=== PATIENT | female | born 1995 | race African-American/Black ===

== ENCOUNTER 2017-02-28 21:39 | Emergency (ER) | payer BC, OTHER ==
[2017-02-28 22:09] VITALS: BP 131/71; PULSE 59; TEMP 98; BMI 26.3
[2017-02-28] MEDS ORDERED: SODIUM CHLORIDE 1,000 ML IV STA (22:35)
[2017-02-28] MEDS ORDERED: ONDANSETRON 4 MG/2 ML VIAL IVPB ONE (22:35)
--- NOTE | 2017-02-28 23:01 | PDOC ---
History of Present Illness - General Chief Complaint: Syncope/Near Syncope Stated Complaint: SYNCOPE/NEAR SYNCOPE Time Seen by Provider: 02/28/17 22:17 History Source: Patient, Family Exam Limitations: No Limitations - History of Present Illness Initial Comments: 02/28/17 22:56 21yo Female patient w/ PmHx: H. Pylori presents to ED c/o Syncope. Patient reports she has been vomiting for the past 2 days and not feeling well. Patient states she then went out for a walk, and suddenly became dizzy. She sat down on a stoop for a while, and as she stood up, she passed out face first on concrete. Patient states that prior to symptoms today, she had been experiencing Lt Flank pain with n/v, but did not think anything of it because she usually experience these types of vomiting episodes. Associated: Subjective fever. LNMP: January 26. Presenting Symptoms: Back Pain (Lt Flank), Nausea, Syncope, Vomiting Timing/Duration: reports: constant. denies: getting worse, changing over time, intermittent, resolved prior to arrival, gone now, other Severity/Quality: reports: mild Location: denies: substernal, central, epigastric, shoulder, back, abdomen, other Chest Pain Radiation: denies: no radiation, jaw, arms, neck, shoulders, back, sternal notch, epigastric, other Activities at Onset: denies: none, exertion, emotional upset, rest, sleep, no specific activity, eating, working, sexual intercourse, other Prior Chest Pain/Cardiac Workup: denies: No prior chest pain, No prior cardiac workup, Non-cardiac, Angina, Cardiac Cath, Cardiolye Scan, Echocardiography, Heart Attack, Pulmonary Embolism, Stress Test, Thallium Scan, Other Modifying Factors: worse with: antacids, breathing, coughing, defecating, eating , exercise, lying down, morphine, movement, nitroglycerin, oxygen, palpation, rest, other Aspirin Received prior to arrival (Core Measure): No: no aspirin today, unknown , 81 mg x 1, 81 mg x 2, 81 mg x 3, 81 mg x 4, 325 mg x 1, provided at home, provided by EMS, provided by ED Past History - Travel Traveled outside of the country in the last 30 days: No Close contact w/someone who was outside of country & ill: No - Past Medical History Allergies/Adverse Reactions: Allergies Allergy/AdvReac Type Severity Reaction Status Date / Time No Known Allergies Allergy Verified 03/01/17 00:56 Home Medications: Ambulatory Orders NK [No Known Home Medication] 03/01/17 Asthma: Yes - Immunization History Immunization Up to Date: Yes - Psycho/Social/Smoking Cessation Hx Anxiety: No Suicidal Ideation: No Smoking History: Never smoked Have you smoked in the past 12 months: No Information on smoking cessation initiated: No Hx Alcohol Use: No Drug/Substance Use Hx: No Substance Use Type: Marijuana Cardiac Specific PMH - Complaint Specific PMHX Abdominal Aortic Aneurysm: No Angina: No Cardiac Arrhythmia: No Cardiac Stent: No GERD: No Myocardial Infarction: No Pacemaker: No Pulmonary Embolus: No Valvular Heart Disease: No Peripheral Vascular Disease: No Review of Systems - Review of Systems Able to Perform ROS?: Yes Is the patient limited Macedonian proficient: No Constitutional: Yes: Fever (Subjective). No: Chills Respiratory: No: Cough, Shortness of Breath, Wheezing Cardiac (ROS): Yes: Lightheadedness, Syncope. No: Chest Pain, Palpitations, Chest Tightness ABD/GI: Yes: Nausea, Poor Fluid Intake, Vomiting. No: Constipated, Diarrhea, Difficulty Swallowing, Poor Appetite, Rectal Bleeding, Abdominal cramping : Yes: Flank Pain (Lt). No: Burning, Dysuria, Frequency, Hematuria, Urgency Musculoskeletal: No: Back Pain Integumentary: No: Erythema, Rash, Sweating Neurological: Yes: Dizziness. No: Headache, Seizure, Tremors, Weakness All Other Systems: Reviewed and Negative *Physical Exam - Vital Signs Last Vital Signs Temp Pulse Resp BP Pulse Ox 98 F 59 L 19 131/71 100 02/28/17 22:07 02/28/17 22:07 02/28/17 22:07 02/28/17 22:07 02/28/17 22:36 - Physical Exam General Appearance: Yes: Nourished, Appropriately Dressed. No: Apparent Distress, Mild Distress, Moderate Distress, Severe Distress HEENT: positive: EOMI, ABI, Normal ENT Inspection, Normal Voice, Symmetrical, TMs Normal, Pharynx Normal. negative: Pharyngeal Erythema, Tonsillar Exudate, Tonsillar Erythema, Nasal Congestion, Rhinorrhea, TM Bulging, TM Dull, TM Erythema Neck: positive: Trachea midline, Normal Thyroid, Supple. negative: Rigid, Decreased range of motion, Lymphadenopathy (R), Lymphadenopathy (L), Tender lateral, Tender midline Respiratory/Chest: positive: Lungs Clear, Normal Breath Sounds. negative: Chest Tender, Respiratory Distress, Accessory Muscle Use, Labored Respiration, Rapid RR, Decreased Breath Sounds, Rhonchi, Stridor Cardiovascular: positive: Regular Rhythm, Regular Rate Gastrointestinal/Abdominal: positive: Normal Bowel Sounds, Soft. negative: Distended, Guarding, Rebound, Tenderness Musculoskeletal: positive: Normal Inspection, Other. negative: CVA Tenderness, CVA Tenderness (L), Vertebral Tenderness Extremity: positive: Normal Capillary Refill, Normal Inspection, Normal Range of Motion, Pelvis Stable, Other. negative: Pedal Edema, Swelling, Calf Tenderness, Erythema, Inflammation Integumentary: positive: Normal Color, Dry, Warm, Other (Abrasion to Lt knee). negative: Moist, Rash, Swelling, Bruising Neurologic: positive: film producer II-XII NML intact, Fully Oriented, Alert, Normal Mood/ Affect, Normal Response, Motor Strength 5/5 Heart Score/ECG Review - ECG Impressions Normal ECG: Yes Non-specific ST Elevation: No Ischemic Changes: No Bradycardia: Yes Torsades kanwal Pointes: No WPW: No ED Treatment Course - LABORATORY CBC & Chemistry Diagram: 02/28/17 23:40 02/28/17 23:40 - ADDITIONAL ORDERS Additional order review: Laboratory Results 02/28/17 02/28/17 23:40 23:40 Sodium 138 Potassium 3.8 Chloride 102 Carbon Dioxide 24 Anion Gap 12 BUN 8 D Creatinine 0.7 Creat Clearance w eGFR > 60 Random Glucose 92 Lactic Acid 1.2 Calcium 9.0 Total Bilirubin 0.2 AST 18 D ALT 30 D Alkaline Phosphatase 51 Creatine Kinase 178 CK-MB (CK-2) < 1.000 Total Protein 7.0 Albumin 3.7 Total Amylase 65 Lipase 102 Beta HCG, Quant < 1.0 02/28/17 23:40 RBC 4.59 MCV 78.2 L MCHC 32.9 RDW 13.7 MPV 9.0 Neutrophils % 77.6 D Lymphocytes % 14.2 D Monocytes % 7.8 Eosinophils % 0.2 D Basophils % 0.2 - RADIOLOGY Radiology Studies Ordered: Category Date Time Status ABDOMEN & PELVIS CT W/O CONTR [CT] Stat CT Scan 03/01/17 00:[address] W/O CONTR [CT] Stat CT Scan 03/01/17 00:[address] WITHOUT CONTRAST [CT] Stat CT Scan 03/01/17 00:00 Taken - Medications Given in the ED: ED Medications Discontinued Medications Generic Name Dose Route Start Last Admin Trade Name Ingrid PRN Reason Stop Dose Admin Sodium Chloride 1,000 mls @ 1,000 mls/hr 02/28/17 22:35 02/27/17 23:30 Normal Saline - IV 02/28/17 23:34 1,000 mls/hr ASDIR STA Administration Ondansetron HCl 8 mg 02/28/17 22:35 02/28/17 23:30 Zofran Injection IVPB 02/28/17 22:36 8 mg ONCE ONE Administration *DC/Admit/Observation/Transfer Diagnosis at time of Disposition: Syncope and collapse - Discharge Dispostion Disposition: HOME Condition at time of disposition: Improved Admit: No - Patient Instructions Printed Discharge Instructions: DI for Syncope in Adults (Fainting) Additional Instructions: FOLLOW UP WITH YOUR DOCTOR NEEDED. MOTRIN OR TYLENOL FOR PAIN NEEDED. GET LOTS OF REST. DRINK PLENTY FLUID. RETURN IF SYMPTOMS WORSEN OR ANY CONCERNS FOR FURTHER EVALUATION. Print Language: K[place] - Post Discharge Activity Work/School Note: Back to Work
[2017-02-28] MEDS ORDERED: ONDANSETRON 4 MG/2 ML VIAL ONE (23:14)
[2017-02-28 23:51] LABS: BASOPHIL 0.2 % (0-2.0); EOSINOPHIL 0.2 % (0-4.5); MCH 25.7 pg (25.7-33.7); MCHC 32.9 g/dl (32.0-36.0); MEAN CELL VOLUME 78.2 fl (80-96); NEUTROPHILS 77.6 % (42.8-82.8); PLATELET COUNT 200 K/MM3 (134-434); RDW 13.7 % (11.6-15.6); WHITE BLOOD COUNT 7.7 K/mm3 (4.0-10.0)
[2017-03-01 00:15] LABS: ALBUMIN 3.7 g/dl (3.4-5.0); AMYLASE 65 U/L (25-115); ANION GAP 12 (8-16); BILIRUBIN,TOTAL 0.2 mg/dL (0.2-1.0); CO2 24 mmol/L (21-32); CREATININE 0.7 mg/dL (0.55-1.02); GLUCOSE,RANDOM 92 mg/dL (74-106); SGOT/AST 18 U/L (15-37); SGPT/ALT 30 U/L (12-78)
[2017-03-01 00:18] LABS: ALK PHOS 51 U/L (45-117)
[2017-03-01 01:03] LABS: URINE APPEARANCE CLEAR; URINE BILIRUBIN NEGATIVE (NEGATIVE); URINE BLOOD NEGATIVE (NEGATIVE); URINE COLOR LTYELLOW; URINE GLUCOSE (UA) NEGATIVE (NEGATIVE); URINE KETONE TRACE (NEGATIVE); URINE LEUK ESTERASE NEGATIVE (NEGATIVE); URINE NITRITE NEGATIVE (NEGATIVE); URINE PROTEIN NEGATIVE (NEGATIVE); URINE UROBILINOGEN NEGATIVE E.U./dl (0.2-1.0)
[2017-03-01] MEDS ORDERED: ONDANSETRON 4 MG/2 ML VIAL IVPUSH ONE (03:24)
[2017-03-01] MEDS ORDERED: ACETAMINOPHEN 500 MG TABLET (FP) PO ONE (03:24)
[2017-03-01] MEDS ORDERED: ACETAMINOPHEN 325 MG TABLET (FP) ONE (03:43)
[2017-03-01] MEDS ORDERED: ONDANSETRON 4 MG/2 ML VIAL ONE (03:44)
--- NOTE | 2017-03-02 12:38 | EKG ---
Test Reason : Blood Pressure : / mmHG Vent. Rate : 058 BPM Atrial Rate : 058 BPM P-R Int : 156 ms QRS Dur : 084 ms QT Int : 416 ms P-R-T Axes : 064 069 040 degrees QTc Int : 408 ms SINUS BRADYCARDIA WITH SINUS ARRHYTHMIA OTHERWISE NORMAL ECG NO PREVIOUS ECGS AVAILABLE Confirmed by EDY RUSSELL, MEENA ([id number]) on 03/02/2017 12:37:57 PM Referred By: Confirmed By:MEENA SNOW MD
== END 2017-03-01 03:52 | disposition home or self-care (01) ==
LOC: JER 21:39
PROC: 3E033GC Introduction of Other Therapeutic Substance into Peripheral Vein, Percutaneous Approach (ICD-10-PCS; principal; 2017-02-28)
PROC: 3E0337Z Introduction of Electrolytic and Water Balance Substance into Peripheral Vein, Percutaneous Approach (ICD-10-PCS; 2017-02-28)
DX: R55 Syncope and collapse (principal)
CPT/HCPCS: 36415; 70450-TC; 72125-TC; 74176-TC; 80053; 81003; 82150; 82550; 82553; 83605; 83690; 84702; 85025; 87077; 87086; 93005; 93010; 99283-25

== ENCOUNTER 2020-12-16 13:42 | Emergency (ER) | payer BC, OTHER ==
[2020-12-16 13:50] VITALS: BP 123/72; PULSE 81; TEMP 97.9; BMI 28.4
[2020-12-16] MEDS ORDERED: IBUPROFEN 600 MG TABLET (FP) PO ONE ×2 (14:13→15:08)
== END 2020-12-16 17:02 | disposition home or self-care (01) ==
LOC: JERFT 13:42
DX: M79.642 Pain in left hand (principal); M79.632 Pain in left forearm; M25.562 Pain in left knee
CPT/HCPCS: 73070-TC-LT-FY; 73090-TC-LT-FY; 73130-TC-LT-FY; 73562-TC-LT-FY; 84703; 99285-25

== ENCOUNTER 2022-03-19 19:22 | Emergency (ER) | payer BC, OTHER ==
[2022-03-19 19:38] VITALS: BP 128/83; PULSE 87; TEMP 98.5; BMI 28.2
[2022-03-19] MEDS ORDERED: KETOROLAC TROMETHAMINE 30 MG/1 ML VIAL IM ONE (21:16)
== END 2022-03-19 21:54 | disposition home or self-care (01) ==
LOC: JERFT 19:22
PROC: 3E0233Z Introduction of Anti-inflammatory into Muscle, Percutaneous Approach (ICD-10-PCS; principal; 2022-03-19)
DX: L02.412 Cutaneous abscess of left axilla (principal)
CPT/HCPCS: 99284-25

== ENCOUNTER 2022-09-18 04:54 | Emergency (ER) | payer BC, OTHER ==
[2022-09-18 05:19] VITALS: TEMP 98.1; BMI 27.1
[2022-09-18] MEDS ORDERED: ACETAMINOPHEN 1000 MG/100 ML BAG IVPB ONE (06:14)
[2022-09-18] MEDS ORDERED: ONDANSETRON 4 MG/2 ML VIAL IVPUSH ONE (06:14)
[2022-09-18] MEDS ORDERED: ACETAMINOPHEN INJECTION 100 ML IVPB ONE (06:38)
[2022-09-18] MEDS ORDERED: ONDANSETRON 4 MG/2 ML VIAL ONE (06:39)
[2022-09-18 06:42] LABS: BASO % 0.4 % (0-2.0); EOS % 1.4 % (0-4.5); HEMATOCRIT 31.5 % (32.4-45.2); HEMOGLOBIN 10.2 GM/dL (10.7-15.3); LYMPH % 22.1 % (8-40); MCH 24.9 pg (25.7-33.7); MCHC 32.3 g/dl (32.0-36.0); MEAN PLT VOLUME 7.8 fl (7.5-11.1); MONO % 11.5 % (3.8-10.2); NEUT % 64.6 % (42.8-82.8); PLATELET COUNT 262 10^3/uL (134-434); RBC 4.09 M/mm3 (3.60-5.2); RDW 13.9 % (11.6-15.6)
[2022-09-18 06:50] LABS: INR 1.01 (0.83-1.09); PROTHROMBIN TIME (PATIENT) 11.6 SEC (9.7-13.0)
[2022-09-18 06:52] LABS: ACTIVATED PTT 26.1 SECONDS (25.2-36.5)
[2022-09-18 07:05] LABS: ALBUMIN 3.2 g/dl (3.4-5.0); CALCIUM 9.2 mg/dL (8.5-10.1)
[2022-09-18 07:08] LABS: CREATININE 0.6 mg/dL (0.55-1.3)
[2022-09-18 07:10] LABS: BILIRUBIN,TOTAL 0.2 mg/dL (0.2-1); TOT PROT 6.5 g/dl (6.4-8.2)
[2022-09-18 10:34] LABS: EPI CELLS 12 /uL (0-25.1); HYALINE CASTS 1 /uL (0-3.1); PH,URINE 5.5 (5.0-8.0); URINE APPEARANCE CLEAR; URINE BACTERIA 46 /uL (0-1359); URINE BILIRUBIN NEGATIVE (NEGATIVE); URINE COLOR YELLOW; URINE GLUCOSE (UA) NEGATIVE (NEGATIVE); URINE KETONE NEGATIVE (NEGATIVE); URINE LEUK ESTERASE NEGATIVE (NEGATIVE); URINE NITRITE NEGATIVE (NEGATIVE); URINE PROTEIN NEGATIVE (NEGATIVE); URINE RBC 5 /uL (0-23.9); URINE UROBILINOGEN 0.2 mg/dL (0.2-1.0); URINE WBC 13 /uL (0-25.8)
[2022-09-18 11:07] VITALS: BP 108/79; PULSE 82; RESP 18
== END 2022-09-18 11:07 | disposition home or self-care (01) ==
LOC: JER 04:54
PROC: 3E0333Z Introduction of Anti-inflammatory into Peripheral Vein, Percutaneous Approach (ICD-10-PCS; principal; 2022-09-18)
PROC: 3E033GC Introduction of Other Therapeutic Substance into Peripheral Vein, Percutaneous Approach (ICD-10-PCS; 2022-09-18)
DX: O46.91 Antepartum hemorrhage, unspecified, first trimester (principal); Z3A.09 9 weeks gestation of pregnancy
CPT/HCPCS: 36415; 76801-TC; 80053; 81003; 84702; 85025; 85610; 85730; 86850; 86900; 86901; 87086; 99284-25

== ENCOUNTER 2023-03-09 15:48 | Inpatient (IN) | payer BC, OTHER ==
[2023-03-09] MEDS ORDERED: NIFEdipine 10 MG CAPSULE (FP) PO ONE ×3 (16:00→20:45)
[2023-03-09] MEDS ORDERED: DEXTROSE 5%-LACTATED RINGERS 500 ML IV ONE (16:00)
[2023-03-09] MEDS ORDERED: NIFEdipine 10 MG CAPSULE (FP) ONE ×2 (16:07→20:28)
[2023-03-09] MEDS: DEXTROSE 5%-LACTATED RINGERS 500 ML IV ONE ×2 (16:10→16:50)
[2023-03-09] MEDS ORDERED: BETAMET ACET/BETAMET NA PH 30 MG/5 ML VIAL IM ONE ×2 (16:14→16:55)
[2023-03-09] MEDS ORDERED: ELECTROLYTE-148 SOLN 1,000 ML IV SCH ×2 (16:15→22:25)
[2023-03-09] MEDS ORDERED: BETAMET ACET/BETAMET NA PH 30 MG/5 ML VIAL ONE (16:24)
[2023-03-09 17:01] LABS: BASO % 0.6 % (0-2.0); EOS % 0.8 % (0-4.5); HEMATOCRIT 37.6 % (32.4-45.2); HEMOGLOBIN 12.6 GM/dL (10.7-15.3); LYMPH % 28.7 % (8-40); MCH 26.2 pg (25.7-33.7); MCHC 33.4 g/dl (32.0-36.0); MEAN CELL VOLUME 78.3 fl (80-96); MONO % 11.1 % (3.8-10.2); NEUT % 58.8 % (42.8-82.8); PLATELET COUNT 196 10^3/uL (134-434); RDW 14.5 % (11.6-15.6); WHITE BLOOD COUNT 9.7 K/mm3 (4.0-10.0)
[2023-03-09 17:02] LABS: RETICULOCYTES 1.79 % (0.5-1.5)
[2023-03-09 17:10] LABS: INR 0.86 (0.83-1.09)
[2023-03-09 17:13] LABS: ACTIVATED PTT 24.9 SECONDS (25.2-36.5)
[2023-03-09 17:21] VITALS: BMI 32.8
[2023-03-09 17:21] LABS: POTASSIUM 4.1 mmol/L (3.5-5.1)
[2023-03-09 17:24] LABS: CALCIUM 9.4 mg/dL (8.5-10.1); GAMMA GLUTAMYL TRANSPEPTIDASE 22 U/L (5-85)
[2023-03-09 17:25] LABS: BLOOD UREA NITROGEN 7.7 mg/dL (7-18)
[2023-03-09 17:27] LABS: URIC ACID 5.2 mg/dL (2.6-7.2)
[2023-03-09 17:28] LABS: CREATININE 0.6 mg/dL (0.55-1.3); SGOT/AST 22 U/L (15-37); SGPT/ALT 29 U/L (13-61)
[2023-03-09] MEDS ORDERED: MAGNESIUM SULFATE 20GM/500ML - 20 GM/500 ML INFUS.BAG IVPB SCH (17:30)
[2023-03-09] MEDS ORDERED: MAGNESIUM 4GM/H20 - 4 GM/100 ML IVPB IVPB SCH (17:30)
[2023-03-09] MEDS ORDERED: MAGNESIUM 4GM/H20 - 4 GM/100 ML IVPB IVPB ONE ×2 (17:35→17:39)
[2023-03-09] MEDS ORDERED: MAGNESIUM SULFATE 20GM/500ML - 20 GM/500 ML INFUS.BAG ONE (18:09)
[2023-03-09 20:27] LABS: MAGNESIUM 2.2 mg/dL (1.8-2.4)
[2023-03-09] MEDS ORDERED: ACETAMINOPHEN 325 MG TABLET (FP) ONE (20:28)
[2023-03-09] MEDS: ACETAMINOPHEN 325 MG TABLET (FP) PO PRN (20:35)
[2023-03-09] MEDS ORDERED: LABETALOL HCL 100 MG TABLET (FP) ONE (22:21)
[2023-03-09] MEDS: LABETALOL HCL 100 MG TABLET (FP) PO SCH (22:25)
[2023-03-10] MEDS ORDERED: MAGNESIUM SULFATE 20GM/500ML - 20 GM/500 ML INFUS.BAG ONE ×2 (03:14→10:51)
[2023-03-10] MEDS ORDERED: BETAMET ACET/BETAMET NA PH 30 MG/5 ML VIAL IM ONE (05:45)
[2023-03-10 06:41] LABS: BASO % 0.2 % (0-2.0); HEMATOCRIT 36.5 % (32.4-45.2); HEMOGLOBIN 12.2 GM/dL (10.7-15.3); LYMPH % 12.9 % (8-40); MCH 26.5 pg (25.7-33.7); MCHC 33.4 g/dl (32.0-36.0); MEAN CELL VOLUME 79.2 fl (80-96); MEAN PLT VOLUME 9.6 fl (7.5-11.1); MONO % 4.6 % (3.8-10.2); NEUT % 82.3 % (42.8-82.8); PLATELET COUNT 211 10^3/uL (134-434); RBC 4.61 M/mm3 (3.60-5.2); RDW 14.6 % (11.6-15.6); WHITE BLOOD COUNT 10.5 K/mm3 (4.0-10.0)
[2023-03-10] MEDS ORDERED: FENTANYL CITRATE/PF 50 MCG/ML VIAL ONE (07:53)
[2023-03-10] MEDS ORDERED: morphine SULFATE/PF 1 MG/2 ML (2cc Syringe - QUVA) ONE (07:53)
[2023-03-10] MEDS ORDERED: CITRIC ACID/SODIUM CITRATE 30 ML UNIT-DOSE CUP PO ONE (07:54)
[2023-03-10 07:58] LABS: CHLORIDE 104 mmol/L (98-107); POTASSIUM 4.1 mmol/L (3.5-5.1); SODIUM 137 mmol/L (136-145)
[2023-03-10 08:00] LABS: ALBUMIN 2.9 g/dl (3.4-5.0); ANION GAP 12 MMOL/L (8-16); BLOOD UREA NITROGEN 6.2 mg/dL (7-18); CO2 20 mmol/L (21-32); GLUCOSE,RANDOM 95 mg/dL (74-106)
[2023-03-10 08:03] LABS: CREATININE 0.7 mg/dL (0.55-1.3)
[2023-03-10 08:04] LABS: SGPT/ALT 29 U/L (13-61)
[2023-03-10 08:05] LABS: BILIRUBIN,TOTAL < 0.1 mg/dL (0.2-1); TOT PROT 6.2 g/dl (6.4-8.2)
[2023-03-10 08:06] LABS: ALK PHOS 172 U/L (45-117)
[2023-03-10 08:09] LABS: SGOT/AST 20 U/L (15-37)
[2023-03-10 08:12] LABS: MAGNESIUM 5.6 mg/dL (1.8-2.4)
[2023-03-10] MEDS ORDERED: ACETAMINOPHEN 325 MG TABLET (FP) PO PRN (08:53)
[2023-03-10] MEDS ORDERED: ACETAMINOPHEN 1000 MG/100 ML BAG IVPB PRN (08:55)
[2023-03-10] MEDS ORDERED: OXYTOCIN 20 UNITS in 0.9% NS 20 UNIT/1,000 ML INFUS.BAG IV SCH ×2 (09:00→09:05)
[2023-03-10] MEDS ORDERED: ONDANSETRON 4 MG/2 ML VIAL ONE (09:00)
[2023-03-10] MEDS ORDERED: ceFAZolin SODIUM 1 GM VIAL ONE ×2 (09:00→22:50)
[2023-03-10] MEDS ORDERED: CEFAZOLIN SODIUM 2 GM in DEXTROSE 5%-WATER 100 ML IVPB SCH (09:00)
[2023-03-10] MEDS ORDERED: MAGNESIUM SULFATE 20GM/500ML - 20 GM/500 ML INFUS.BAG IVPB SCH (09:00)
[2023-03-10] MEDS ORDERED: KETOROLAC TROMETHAMINE 30 MG/1 ML VIAL ONE (09:00)
[2023-03-10] MEDS ORDERED: DEXAMETHASONE SOD PHOSPHATE 4 MG/1 ML VIAL ONE (09:00)
[2023-03-10] MEDS ORDERED: PHENYLEPHRINE HCL 10 MG/1 ML SINGLE DOSE VIAL ONE (09:00)
[2023-03-10] MEDS ORDERED: OXYTOCIN 10 UNITS/ML VIAL ONE (09:00)
[2023-03-10] MEDS ORDERED: ELECTROLYTE-148 SOLN 1,000 ML IV SCH (09:05)
[2023-03-10] MEDS ORDERED: ONDANSETRON 4 MG/2 ML VIAL IVPUSH PRN (09:31)
[2023-03-10] MEDS ORDERED: ACETAMINOPHEN 1000 MG/100 ML BAG IVPB ONE (09:34)
[2023-03-10] MEDS ORDERED: PROMETHAZINE HCL 25 MG/1 ML VIAL IVPB PRN (09:34)
[2023-03-10 09:40] LABS: CORD BASE EXCESS -6.2 mmol/L (0-2); CORD HCO3 20.9 mmHg (20-29); CORD PCO2 46.7 mmHg (30-78); CORD pH 7.269 (7.14-7.44)
[2023-03-10 09:45] LABS: CORD BASE EXCESS -5.2 mmol/L (0-2); CORD HCO3 23.3 mmHg (20-29); CORD PCO2 56.6 mmHg (30-78); CORD pH 7.233 (7.14-7.44)
[2023-03-10] MEDS ORDERED: morphine SULFATE/PF 1 MG/2 ML (2cc Syringe - QUVA) EP ONE (10:00)
[2023-03-10] MEDS ORDERED: OXYTOCIN 20 UNITS in 0.9% NS 20 UNIT/1,000 ML INFUS.BAG IV ONE (10:51)
[2023-03-10] MEDS ORDERED: LABETALOL HCL 100 MG TABLET (FP) ONE ×2 (13:35→21:00)
[2023-03-10] MEDS: LABETALOL HCL 100 MG TABLET (FP) PO SCH ×2 (13:40→21:08)
[2023-03-10] MEDS ORDERED: CEFAZOLIN SODIUM 2 GM VIAL ONE (15:06)
[2023-03-10] MEDS: CEFAZOLIN SODIUM 2 GM in DEXTROSE 5%-WATER 100 ML IVPB SCH ×2 (15:15→22:52)
[2023-03-10] MEDS ORDERED: oxyCODONE HCL 5 MG TABLET PO PRN ×2 (20:53)
[2023-03-10] MEDS ORDERED: ACETAMINOPHEN INJECTION 100 ML IVPB ONE (22:30)
[2023-03-11] MEDS: SIMETHICONE 80 MG TAB.CHEW (FP) PO PRN ×4 (01:41→19:37)
[2023-03-11] MEDS: CEFAZOLIN SODIUM 2 GM in DEXTROSE 5%-WATER 100 ML IVPB SCH (06:05)
[2023-03-11] MEDS: IBUPROFEN 600 MG TABLET (FP) PO PRN ×3 (08:01→19:37)
[2023-03-11 08:15] LABS: BASO % 0.1 % (0-2.0); HEMATOCRIT 35.4 % (32.4-45.2); HEMOGLOBIN 11.5 GM/dL (10.7-15.3); LYMPH % 10.2 % (8-40); MCH 25.9 pg (25.7-33.7); MCHC 32.6 g/dl (32.0-36.0); MEAN CELL VOLUME 79.4 fl (80-96); MEAN PLT VOLUME 9.9 fl (7.5-11.1); MONO % 9.4 % (3.8-10.2); NEUT % 80.3 % (42.8-82.8); PLATELET COUNT 206 10^3/uL (134-434); RBC 4.46 M/mm3 (3.60-5.2); RDW 14.2 % (11.6-15.6)
[2023-03-11] MEDS ORDERED: BISACODYL 10 MG SUPP.RECT RC PRN (08:53)
[2023-03-11] MEDS: ENOXAPARIN NA (PORCINE) 40 MG/0.4 ML DISP.SYRIN SQ SCH (09:55)
[2023-03-11] MEDS: LABETALOL HCL 100 MG TABLET (FP) PO SCH ×2 (09:55→22:45)
[2023-03-11] MEDS ORDERED: NIFEdipine 10 MG CAPSULE (FP) PO ONE (16:53)
[2023-03-11] MEDS: NIFEdipine E.R. 30 MG TABLET PO SCH (19:38)
[2023-03-11] MEDS: SENNOSIDES/DOCUSATE COMBO (SENNA PLUS) TABLET (UD) PO PRN (21:27)
[2023-03-12] MEDS: SIMETHICONE 80 MG TAB.CHEW (FP) PO PRN ×4 (05:47→21:06)
[2023-03-12] MEDS: ACETAMINOPHEN 325 MG TABLET (FP) PO PRN (05:47)
[2023-03-12] MEDS: NIFEdipine E.R. 30 MG TABLET PO SCH (09:16)
[2023-03-12] MEDS: ENOXAPARIN NA (PORCINE) 40 MG/0.4 ML DISP.SYRIN SQ SCH (09:18)
[2023-03-12] MEDS: IBUPROFEN 600 MG TABLET (FP) PO PRN ×3 (09:22→21:02)
[2023-03-12] MEDS: LABETALOL HCL 100 MG TABLET (FP) PO SCH ×2 (10:32→22:03)
[2023-03-13 07:26] LABS: BASO % 0.3 % (0-2.0); EOS % 2.3 % (0-4.5); HEMATOCRIT 36.9 % (32.4-45.2); HEMOGLOBIN 11.9 GM/dL (10.7-15.3); LYMPH % 26.5 % (8-40); MCH 25.8 pg (25.7-33.7); MCHC 32.3 g/dl (32.0-36.0); MEAN CELL VOLUME 79.8 fl (80-96); MEAN PLT VOLUME 9.1 fl (7.5-11.1); MONO % 10.4 % (3.8-10.2); NEUT % 60.5 % (42.8-82.8); PLATELET COUNT 209 10^3/uL (134-434); RBC 4.63 M/mm3 (3.60-5.2); RDW 14.6 % (11.6-15.6); WHITE BLOOD COUNT 8.9 K/mm3 (4.0-10.0)
[2023-03-13] MEDS: IBUPROFEN 600 MG TABLET (FP) PO PRN ×2 (09:56→18:23)
[2023-03-13] MEDS: NIFEdipine E.R. 30 MG TABLET PO SCH (09:56)
[2023-03-13] MEDS: SIMETHICONE 80 MG TAB.CHEW (FP) PO PRN ×2 (09:56→18:24)
[2023-03-13] MEDS: ENOXAPARIN NA (PORCINE) 40 MG/0.4 ML DISP.SYRIN SQ SCH (09:58)
[2023-03-13] MEDS: LABETALOL HCL 100 MG TABLET (FP) PO SCH ×2 (12:51→21:29)
[2023-03-13] MEDS: SENNOSIDES/DOCUSATE COMBO (SENNA PLUS) TABLET (UD) PO PRN (21:30)
[2023-03-13 23:03] VITALS: RESP 20
[2023-03-14] MEDS: IBUPROFEN 600 MG TABLET (FP) PO PRN ×2 (06:13→10:14)
[2023-03-14] MEDS: SIMETHICONE 80 MG TAB.CHEW (FP) PO PRN (06:13)
[2023-03-14] MEDS: LABETALOL HCL 100 MG TABLET (FP) PO SCH (10:13)
[2023-03-14] MEDS: NIFEdipine E.R. 30 MG TABLET PO SCH (10:14)
[2023-03-14] MEDS: ENOXAPARIN NA (PORCINE) 40 MG/0.4 ML DISP.SYRIN SQ SCH (10:14)
[2023-03-14 14:19] VITALS: BP 144/91; PULSE 62; TEMP 97.5
== END 2023-03-14 16:45 | disposition home or self-care (01) | DRG 788 ==
LOC: JDEL 15:48 → JERBED 15:57 → JLDR 16:06 → J3W 03-11 00:31
PROVIDERS: ADMIT Obstetrics & Gynecology; ATTEND Obstetrics & Gynecology
PROC: 10D00Z1 Extraction of Products of Conception, Low, Open Approach (ICD-10-PCS; principal; 2023-03-10)
DX: O14.14 Severe pre-eclampsia complicating childbirth (principal); O36.5930 Maternal care for other known or suspected poor fetal growth, third trimester, not applicable or unspecified; Z3A.34 34 weeks gestation of pregnancy; Z37.0 Single live birth
CPT/HCPCS: 36415; 36600; 80048; 80053; 82570; 82803; 82962; 82977; 83010; 83735; 84156; 84450; 84460; 84550; 85025; 85032; 85045; 85610; 85730; 86780; 86850; 86900; 86901; 88307-TC; 94010; 96372

== ENCOUNTER 2023-08-20 18:46 | Emergency (ER) | payer BC, OTHER ==
[2023-08-20 18:50] VITALS: BP 137/71; PULSE 80; RESP 18; TEMP 98; BMI 33.4
[2023-08-20] MEDS ORDERED: ACETAMINOPHEN 500 MG TABLET (FP) PO ONE (20:04)
[2023-08-20] MEDS ORDERED: IBUPROFEN 600 MG TABLET (FP) PO ONE ×2 (20:05→20:06)
[2023-08-20] MEDS ORDERED: ACETAMINOPHEN 500 MG TABLET (FP) ONE (20:06)
== END 2023-08-20 20:18 | disposition home or self-care (01) ==
LOC: JERFT 18:46
PROC: 0H9BXZZ Drainage of Right Upper Arm Skin, External Approach (ICD-10-PCS; principal; 2023-08-20)
DX: L02.411 Cutaneous abscess of right axilla (principal)
CPT/HCPCS: 99283-25

== ENCOUNTER 2023-08-24 18:37 | Emergency (ER) | payer BC, OTHER ==
[2023-08-24 18:46] VITALS: BP 135/76; PULSE 78; RESP 18; TEMP 98.2; BMI 33.4
[2023-08-24] MEDS ORDERED: KETOROLAC TROMETHAMINE 30 MG/1 ML VIAL IM ONE (19:21)
[2023-08-24] MEDS ORDERED: DOXYCYCLINE HYCLATE 100 MG CAPSULE PO ONE ×2 (19:21→19:26)
[2023-08-24] MEDS ORDERED: KETOROLAC TROMETHAMINE 30 MG/1 ML VIAL ONE (19:26)
== END 2023-08-24 20:01 | disposition home or self-care (01) ==
LOC: JER 18:37
PROC: 3E0233Z Introduction of Anti-inflammatory into Muscle, Percutaneous Approach (ICD-10-PCS; principal; 2023-08-24)
DX: L73.2 Hidradenitis suppurativa (principal); M79.601 Pain in right arm
CPT/HCPCS: 99284-25

== ENCOUNTER 2023-10-18 20:31 | Observation (INO) | payer BC, OTHER ==
[2023-10-18 20:52] VITALS: BMI 33.9
[2023-10-18 22:10] LABS: EOS % 3.8 % (0-4.5); HEMATOCRIT 38.1 % (32.4-45.2); HEMOGLOBIN 12.6 GM/dL (10.7-15.3); LYMPH % 44.1 % (8-40); MCH 25.8 pg (25.7-33.7); MCHC 33.1 g/dl (32.0-36.0); MEAN CELL VOLUME 78.1 fl (80-96); MEAN PLT VOLUME 8.4 fl (7.5-11.1); MONO % 8.8 % (3.8-10.2); NEUT % 42.3 % (42.8-82.8); PLATELET COUNT 260 10^3/uL (134-434); RBC 4.87 M/mm3 (3.60-5.2); RDW 13.8 % (11.6-15.6); WHITE BLOOD COUNT 6.9 K/mm3 (4.0-10.0)
[2023-10-18 22:18] LABS: EPI CELLS 33 /uL (0-25.1); HYALINE CASTS 0 /uL (0-3.1); PH,URINE 5.5 (5.0-8.0); URINE APPEARANCE CLEAR; URINE BACTERIA 370 /uL (0-1359); URINE BILIRUBIN NEGATIVE (NEGATIVE); URINE COLOR YELLOW; URINE GLUCOSE (UA) NEGATIVE (NEGATIVE); URINE KETONE NEGATIVE (NEGATIVE); URINE LEUK ESTERASE TRACE (NEGATIVE); URINE NITRITE NEGATIVE (NEGATIVE); URINE PROTEIN NEGATIVE (NEGATIVE); URINE RBC 5 /uL (0-23.9); URINE UROBILINOGEN 0.2 mg/dL (0.2-1.0); URINE WBC 17 /uL (0-25.8)
[2023-10-18 22:22] LABS: INR 0.98 (0.83-1.09); PROTHROMBIN TIME (PATIENT) 11.4 SEC (9.7-13.0)
[2023-10-18 22:25] LABS: ACTIVATED PTT 31.9 SECONDS (25.2-36.5)
[2023-10-18 22:35] LABS: POTASSIUM 3.9 mmol/L (3.5-5.1)
[2023-10-18 22:36] LABS: CALCIUM 9.8 mg/dL (8.5-10.1)
[2023-10-18 22:37] LABS: ALBUMIN 4.1 g/dl (3.4-5.0)
[2023-10-18 22:38] LABS: BLOOD UREA NITROGEN 12.4 mg/dL (7-18)
[2023-10-18 22:40] LABS: CREATININE 0.7 mg/dL (0.55-1.3)
[2023-10-18 22:42] LABS: TOT PROT 7.3 g/dl (6.4-8.2)
[2023-10-18 22:43] LABS: BILIRUBIN,TOTAL 0.2 mg/dL (0.2-1)
[2023-10-19] MEDS ORDERED: ATORVASTATIN CA 40 MG TABLET (FP) PO ONE (00:38)
[2023-10-19] MEDS ORDERED: LACTATED RINGERS SOLUTION 1,000 ML/1,000 ML INFUS.BAG IV SCH (01:15)
[2023-10-19] MEDS ORDERED: ATORVASTATIN CA 40 MG TABLET (FP) ONE (02:17)
[2023-10-19] MEDS ORDERED: SUMAtriptan SUCCINATE 50 MG TABLET ONE (09:53)
[2023-10-19] MEDS ORDERED: ASPIRIN COATED 81 MG TABLET.EC ONE (09:53)
[2023-10-19] MEDS ORDERED: ENOXAPARIN NA (PORCINE) 40 MG/0.4 ML DISP.SYRIN SQ ONE (09:54)
[2023-10-19] MEDS ORDERED: ASPIRIN COATED 81 MG TABLET.EC PO SCH (10:00)
[2023-10-19] MEDS: SUMAtriptan SUCCINATE 25 MG TABLET PO SCH (10:36)
[2023-10-19] MEDS: ENOXAPARIN NA (PORCINE) 40 MG/0.4 ML DISP.SYRIN SQ SCH (10:36)
[2023-10-19] MEDS: ASPIRIN COATED 81 MG TABLET.EC PO SCH (10:36)
[2023-10-19 12:39] LABS: BASO % 0.5 % (0-2.0); EOS % 3.3 % (0-4.5); HEMATOCRIT 37.9 % (32.4-45.2); HEMOGLOBIN 12.3 GM/dL (10.7-15.3); LYMPH % 36.3 % (8-40); MCH 25.4 pg (25.7-33.7); MCHC 32.5 g/dl (32.0-36.0); MEAN CELL VOLUME 78.2 fl (80-96); MEAN PLT VOLUME 8.9 fl (7.5-11.1); NEUT % 48.9 % (42.8-82.8); PLATELET COUNT 240 10^3/uL (134-434); RBC 4.84 M/mm3 (3.60-5.2); RDW 13.8 % (11.6-15.6); WHITE BLOOD COUNT 5.8 K/mm3 (4.0-10.0)
[2023-10-19 13:43] LABS: POTASSIUM 3.9 mmol/L (3.5-5.1)
[2023-10-19 13:49] LABS: ALBUMIN 3.7 g/dl (3.4-5.0); BLOOD UREA NITROGEN 8.5 mg/dL (7-18); CALCIUM 9.3 mg/dL (8.5-10.1)
[2023-10-19 13:52] LABS: CREATININE 0.7 mg/dL (0.55-1.3); PHOSPHOROUS 3.5 mg/dL (2.5-4.9)
[2023-10-19 13:53] LABS: BILIRUBIN,TOTAL 0.3 mg/dL (0.2-1)
[2023-10-19] MEDS ORDERED: ATORVASTATIN CA 40 MG TABLET (FP) PO SCH (22:00)
[2023-10-19] MEDS: ACETAMINOPHEN 325 MG TABLET (FP) PO PRN (22:24)
[2023-10-20 09:04] LABS: BASO % 0.5 % (0-2.0); EOS % 3.3 % (0-4.5); HEMATOCRIT 39.4 % (32.4-45.2); LYMPH % 35.4 % (8-40); MCH 25.6 pg (25.7-33.7); MCHC 32.8 g/dl (32.0-36.0); MEAN CELL VOLUME 77.8 fl (80-96); MEAN PLT VOLUME 8.9 fl (7.5-11.1); MONO % 10.8 % (3.8-10.2); PLATELET COUNT 241 10^3/uL (134-434); RBC 5.07 M/mm3 (3.60-5.2); RDW 13.8 % (11.6-15.6)
[2023-10-20 09:27] LABS: POTASSIUM 4.1 mmol/L (3.5-5.1)
[2023-10-20] MEDS: ENOXAPARIN NA (PORCINE) 40 MG/0.4 ML DISP.SYRIN SQ SCH (09:27)
[2023-10-20] MEDS: ASPIRIN COATED 81 MG TABLET.EC PO SCH (09:27)
[2023-10-20] MEDS: SUMAtriptan SUCCINATE 25 MG TABLET PO SCH (09:27)
[2023-10-20 09:36] LABS: ALBUMIN 3.9 g/dl (3.4-5.0); BLOOD UREA NITROGEN 9.5 mg/dL (7-18); CALCIUM 9.3 mg/dL (8.5-10.1)
[2023-10-20 09:39] LABS: CREATININE 0.7 mg/dL (0.55-1.3)
[2023-10-20 09:41] LABS: BILIRUBIN,TOTAL 0.5 mg/dL (0.2-1)
[2023-10-20] MEDS ORDERED: TOPIRAMATE 25 MG TABLET PO SCH (14:45)
[2023-10-20] MEDS: ACETAMINOPHEN 325 MG TABLET (FP) PO PRN (17:01)
[2023-10-20 17:12] VITALS: BP 138/91; PULSE 60; RESP 17; TEMP 97.3
== END 2023-10-20 19:01 | disposition home or self-care (01) ==
LOC: JER 20:31 → JERBED 22:17 → J4S 10-19 15:07
PROVIDERS: ADMIT Internal Medicine; ATTEND Nurse Practitioner Acute Care
PROC: 3E023GC Introduction of Other Therapeutic Substance into Muscle, Percutaneous Approach (ICD-10-PCS; principal; 2023-10-18)
PROC: 3E0337Z Introduction of Electrolytic and Water Balance Substance into Peripheral Vein, Percutaneous Approach (ICD-10-PCS; 2023-10-18)
DX: G43.909 Migraine, unspecified, not intractable, without status migrainosus (principal); L73.2 Hidradenitis suppurativa; E78.00 Pure hypercholesterolemia, unspecified; E78.5 Hyperlipidemia, unspecified; Z29.89 Encounter for other specified prophylactic measures; Z87.898 Personal history of other specified conditions
CPT/HCPCS: 36415; 70450-TC; 70553-TC; 80053; 80061; 81003; 82550; 82553; 83036; 83735; 84100; 84439; 84443; 84484; 84703; 85025; 85610; 85730; 86850; 86900; 86901; 93005; 93010; 93306-TC; 93880-TC; 96360; 96372; 99285-25; G0378